=== PATIENT | female | born 1940 | race Caucasian/White ===

== ENCOUNTER 2019-05-25 20:16 | Emergency (ER) | payer OTHER, MEDICARE ==
[2019-05-25 21:21] LABS: Urine Blood 1+ (NEG); Urine Glucose NEGATIVE (NEG); Urine Protein NEGATIVE (NEG); Urine Specific Gravity <1.005 (1.005-1.030)
[2019-05-25 21:34] LABS: Urine Bacteria <20 /HPF (<20); Urine Culture Reflex Order NOT NEEDED; Urine RBC <5 /HPF (NONE SEEN)
[2019-05-25 22:00] LABS: Absolute Lymphocytes (CBC) 3.1 K/uL (0.7-4.9); Basophils % 1.3 % (0-1.3); Hematocrit 39.5 % (36.0-45.0); Lymphocytes % 30.1 % (15.3-44.8); MPV 7.8 fL (7.6-11.3)
[2019-05-25 22:11] LABS: ALT/SGPT 24 U/L (12-78); AST/SGOT 17 U/L (15-37); Albumin 3.9 g/dL (3.4-5.0); Alkaline Phosphatase 80 U/L (45-117); BUN Blood Urea Nitrogen 9 mg/dL (7-18); Bicarbonate 31 mmol/L (21-32); Bilirubin Direct < 0.1 mg/dL (0-0.2); Bilirubin Total 0.4 mg/dL (0.2-1.0); Glucose Level 97 mg/dL (74-106); Potassium 3.9 mmol/L (3.5-5.1); Protein, Total 7.8 g/dL (6.4-8.2); Sodium Level 138 mmol/L (136-145)
[2019-05-25] MEDS ORDERED: FENTANYL CITR 100 MCG/2 ML ONE (22:56)
--- NOTE | 2019-05-25 23:16 | ER ---
Nurse's Notes [facility] Name: Ángel Medina Age: 78 yrs Sex: Female : 1940 Arrival Date: 05/25/2019 Time: 20:19 Bed 18 Private MD: Diagnosis: Pain to [place] Pubic Region Presentation: 05/24 20:40 Chief complaint: Patient states: she is having suprapubic pain since Sunday night. bb Coronavirus screen: The patient has NOT traveled to [place] in the past 14 days. Proceed with normal triage procedures. Ebola Screen: No symptoms or risks identified at this time. Initial Sepsis Screen: Does the patient meet any 2 criteria? No. Patient's initial sepsis screen is negative. Does the patient have a suspected source of infection? No. Patient's initial sepsis screen is negative. Risk Assessment: Do you want to hurt yourself or someone else? Patient reports no desire to harm self or others. 20:40 Method Of Arrival: Ambulatory bb 20:40 Acuity: ELIZABETH 3 bb - Immunization history:: Adult Immunizations unknown. - Social history:: Smoking status: unknown. Assessment: 21:30 Reassessment: pt in ct scan now. mg2 21:57 Reassessment: No changes from previously documented assessment. Patient and/or family bb3 updated on plan of care and expected duration. Pain level reassessed. Patient is alert/active/playful, equal unlabored respirations, skin warm/dry/pink. General: Appears in no apparent distress. comfortable. Pain: Complains of pain in l/l and l/r abd pain. 23:07 Reassessment: No changes from previously documented assessment. Patient and/or family bb3 updated on plan of care and expected duration. Pain level reassessed. Patient is alert, oriented x 3, equal unlabored respirations, skin warm/dry/pink. Pain: Complains of pain in l/r and l/l abd pain Pain currently is 8 out of 10 on a pain scale. Quality of pain is described as burning, sharp. 23:57 Reassessment: Patient and/or family updated on plan of care and expected duration. Pain bb3 level reassessed. Patient is alert, oriented x 3, equal unlabored respirations, skin warm/dry/pink. Patient denies pain at this time. Patient states feeling better. Patient states symptoms have improved. General: Appears in no apparent distress. comfortable. Pain: Denies pain. 05/25 00:29 Reassessment: Patient appears in no apparent distress at this time. Patient and/or bb3 family updated on plan of care and expected duration. Pain level reassessed. Patient is alert, oriented x 3, equal unlabored respirations, skin warm/dry/pink. Patient denies pain at this time. Patient states feeling better. Patient states symptoms have improved. Vital Signs: 05/24 20:40 BP 184 / 88; Pulse 89; Resp 16 S; Temp 98(O); Pulse Ox 96% on R/A; Pain 7/10; bb 20:49 Weight 72.57 kg; Height 5 ft. 0 in. (152.40 cm); mg2 21:54 BP 126 / 65; Pulse 71; Resp 19; Pulse Ox 96% ; Pain 8/10; bb3 23:06 BP 144 / 69; Pulse 84; Resp 18; Pulse Ox 95% ; Pain 8/10; bb3 05/25 00:28 BP 147 / 65; Pulse 79; Resp 18; Pulse Ox 97% ; Pain 0/10; bb3 05/24 20:49 Body Mass Index 31.25 (72.57 kg, 152.40 cm) mg2 ED Course: 05/24 20:19 Patient arrived in ED. cl3 20:24 Tonny Aguila PA is PHCP. jr8 20:24 Darryn Parker MD is Attending Physician. jr8 20:40 Arm band placed on Patient placed in an exam room, on a stretcher, on pulse oximetry. bb Family accompanied patient. 20:41 Triage completed. bb 21:50 vaginal exam. Inserted saline lock: 20 gauge in right antecubital area, using aseptic mg2 technique. Blood collected. 21:54 CT Stone Protocol In Process Unspecified. EDMS 23:15 Raymon Snyder MD is Referral Physician. jr8 Administered Medications: 23:05 Drug: fentaNYL (PF) 50 mcg Route: IVP; Site: right antecubital; bb3 05/25 00:10 Follow up: Response: No adverse reaction; Marked relief of symptoms; Pain is decreased; bb3 pain 0/0 Intake: Outcome: 05/24 23:16 Discharge ordered by . jr8 05/25 00:29 Patient left the ED. bb3 Signatures: Dispatcher [employer] Albina Ho RN RN bb Tonny Aguila PA PA jr8 Coy Sandoval RN RN mg2 Lewis, Charde cl3 Dolly Jones bb3
--- NOTE | 2019-05-25 23:16 | EDPHYS ---
Physician Documentation [facility] Name: Ángel Medina Age: 78 yrs Sex: Female : 1940 Arrival Date: 05/25/2019 Time: 20:19 Bed 18 Private MD: ED Physician Darryn Parker HPI: 05/24 21:47 This 78 yrs old Female presents to ER via Ambulatory with complaints of pubic jr8 pain. 21:47 The patient presents with abdominal pain pubic region. Onset: The symptoms/episode jr8 began/occurred acutely, yesterday. The symptoms do not radiate. Associated signs and symptoms: none. The symptoms are described as dull, stabbing. Modifying factors: The symptoms are alleviated by nothing, the symptoms are aggravated by movement. Severity of pain: At its worst the pain was moderate in the emergency department the pain is unchanged. The patient has not experienced similar symptoms in the past. The patient has not recently seen a physician. Denies urinary symptoms, fevers, n/v/d. - Immunization history:: Adult Immunizations unknown. - Social history:: Smoking status: unknown. ROS: 21:47 Eyes: Negative for injury, pain, redness, and discharge, ENT: Negative for injury, jr8 pain, and discharge, Neck: Negative for injury, pain, and swelling, Cardiovascular: Negative for chest pain, palpitations, and edema, Respiratory: Negative for shortness of breath, cough, wheezing, and pleuritic chest pain, Back: Negative for injury and pain, MS/Extremity: Negative for injury and deformity, Skin: Negative for injury, rash, and discoloration, Neuro: Negative for headache, weakness, numbness, tingling, and seizure. 21:47 Abdomen/GI: Positive for abdominal pain, Negative for nausea, vomiting, and diarrhea, constipation, abdominal cramps, abdominal distension. Exam: 21:47 Eyes: Pupils equal round and reactive to light, extra-ocular motions intact. Lids and jr8 lashes normal. Conjunctiva and sclera are non-icteric and not injected. Cornea within normal limits. Periorbital areas with no swelling, redness, or edema. ENT: Nares patent. No nasal discharge, no septal abnormalities noted. Tympanic membranes are normal and external auditory canals are clear. Oropharynx with no redness, swelling, or masses, exudates, or evidence of obstruction, uvula midline. Mucous membranes moist. Neck: Trachea midline, no thyromegaly or masses palpated, and no cervical lymphadenopathy. Supple, full range of motion without nuchal rigidity, or vertebral point tenderness. No Meningismus. Cardiovascular: Regular rate and rhythm with a normal S1 and S2. No gallops, murmurs, or rubs. Normal PMI, no JVD. No pulse deficits. Respiratory: Lungs have equal breath sounds bilaterally, clear to auscultation and percussion. No rales, rhonchi or wheezes noted. No increased work of breathing, no retractions or nasal flaring. Back: No spinal tenderness. No costovertebral tenderness. Full range of motion. Skin: Warm, dry with normal turgor. Normal color with no rashes, no lesions, and no evidence of cellulitis. MS/ Extremity: Pulses equal, no cyanosis. Neurovascular intact. Full, normal range of motion. Neuro: Awake and alert, GCS 15, oriented to person, place, time, and situation. Cranial nerves II-XII grossly intact. Motor strength 5/5 in all extremities. Sensory grossly intact. Cerebellar exam normal. Normal gait. 21:47 Abdomen/GI: Inspection: abdomen appears normal, Bowel sounds: active, all quadrants, Palpation: soft, in all quadrants, mild abdominal tenderness, in the suprapubic area and lower mons pubic region, mass, is not appreciated, rebound tenderness, is not appreciated, voluntary guarding, is not appreciated, involuntary guarding, is not appreciated, no appreciated organomegaly, Indicators: McBurney's point is not tender, Avelar's sign is negative, Rovsing's sign is negative, Liver: tenderness, is not appreciated. 21:47 : CVA tenderness, is absent, Pelvic Exam: External exam: is normal, no appreciated Bartholin's cyst, no erythema, not excoriated, no evidence of foreign body, no lesions, no ulcerations, no warts seen, discharge, is not appreciated, the nurse was present for the exam. Vital Signs: 20:40 BP 184 / 88; Pulse 89; Resp 16 S; Temp 98(O); Pulse Ox 96% on R/A; Pain 7/10; bb 20:49 Weight 72.57 kg; Height 5 ft. 0 in. (152.40 cm); mg2 21:54 BP 126 / 65; Pulse 71; Resp 19; Pulse Ox 96% ; Pain 8/10; bb3 23:06 BP 144 / 69; Pulse 84; Resp 18; Pulse Ox 95% ; Pain 8/10; bb3 05/25 00:28 BP 147 / 65; Pulse 79; Resp 18; Pulse Ox 97% ; Pain 0/10; bb3 05/24 20:49 Body Mass Index 31.25 (72.57 kg, 152.40 cm) mg2 MDM: 05/24 20:28 Patient medically screened. jr8 23:13 Data reviewed: vital signs, nurses notes, lab test result(s), radiologic studies, CT jr8 scan. Data interpreted: Pulse oximetry: on room air is 95 %. Interpretation: normal. Counseling: I had a detailed discussion with the patient and/or guardian regarding: the historical points, exam findings, and any diagnostic results supporting the discharge/admit diagnosis, lab results, radiology results, the need for outpatient follow up, a family practitioner, to return to the emergency department if symptoms worsen or persist or if there are any questions or concerns that arise at home. Response to treatment: the patient's symptoms have markedly improved after treatment. ED course: Discussed with patient that there is no acute imaging evidence or lab abnormalities at this time to explain the pubic pain she has been feeling. Physical exam did not reveal any erythema, bruising, or hematoma to that region also. Could be light bruise or pull of ligament or muscle from lifting heavy boxes the other day. Recommend NSAID for next couple of days and to f/u with Dr. Snyder tomorrow. Patient good with this . 05/25 00:19 ED course: [facility] reviewed without acute contraindication for prescribing the jr8 Tramadol . 05/24 20:24 Order name: Urine Microscopic Only; Complete Time: 21:59 jr8 05/24 21:15 Order name: Basic Metabolic Panel; Complete Time: 22:17 jr8 05/24 21:15 Order name: CBC with Diff; Complete Time: 22:04 jr8 05/24 21:15 Order name: Creatinine for Radiology; Complete Time: 22:11 jr8 05/24 21:15 Order name: Hepatic Function; Complete Time: 22:17 jr8 05/24 21:18 Order name: Urine Dipstick--Ancillary (enter results); Complete Time: 21:26 ar5 05/24 20:24 Order name: Urine Dipstick-Ancillary (obtain specimen); Complete Time: 20:49 jr8 05/24 21:15 Order name: IV Saline Lock; Complete Time: 21:50 jr8 05/24 21:15 Order name: Labs collected and sent; Complete Time: 21:50 jr8 05/24 21:15 Order name: CT Stone Protocol jr8 Administered Medications: 05/24 23:05 Drug: fentaNYL (PF) 50 mcg Route: IVP; Site: right antecubital; bb3 05/25 00:10 Follow up: Response: No adverse reaction; Marked relief of symptoms; Pain is decreased; bb3 pain 0/0 Disposition: 01:05 Co-signature as Attending Physician, Darryn Parker MD. pkchina Disposition: 05/25/19 23:16 Discharged to Home. Impression: Pain to [place] Pubic Region. - Condition is Stable. - Discharge Instructions: Muscle Pain, Adult, Pelvic Pain, Female. - Prescriptions for Mobic 7.5 mg Oral Tablet - take 1 tablet by ORAL route once daily As needed take with food; 7 tablet. Tramadol 50 mg Oral Tablet - take 2 tablet by ORAL route every 8 hours As needed as needed; 20 tablet. - Medication Reconciliation Form, Thank You Letter, Antibiotic Education, Prescription Opioid Use form. - Follow up: Raymon Snyder MD; When: Tomorrow; Reason: Recheck today's complaints, Continuance of care, Re-evaluation by your physician. - Problem is new. - Symptoms have improved. Signatures: Dispatcher [employer] EDMS Darryn Parker MD MD pkl Albina Álvarez RN RN bb Tonny Aguila PA PA jr8 Coy Sandoval RN RN mg2 Borel, Brandy bb3 Corrections: (The following items were deleted from the chart) 05/24 23:16 23:16 05/25/2019 23:16 Discharged to Home. Impression: [place] Pubis Pain . Condition is jr8 Stable. Forms are Medication Reconciliation Form, Thank You Letter, Antibiotic Education, Prescription Opioid Use. Follow up: Raymon Snyder; When: Tomorrow; Reason: Recheck today's complaints, Continuance of care, Re-evaluation by your physician. Problem is new. Symptoms have improved. jr8 05/25 00:29 05/24 23:16 05/25/2019 23:16 Discharged to Home. Impression: Pain to [place] Pubic Region. bb3 Condition is Stable. Forms are Medication Reconciliation Form, Thank You Letter, Antibiotic Education, Prescription Opioid Use. Follow up: Raymon Snyder; When: Tomorrow; Reason: Recheck today's complaints, Continuance of care, Re-evaluation by your physician. Problem is new. Symptoms have improved. jr8
[2019-05-26 02:52] VITALS: BP 147/65; TEMP 98; O2SAT 97
--- NOTE | 2019-05-26 13:06 | RAD REPORT ---
EXAM DESCRIPTION: CT Abdomen and Pelvis Without Intravenous Contrast CLINICAL HISTORY: The patient is 78 years old and is Female; ABD PAIN TECHNIQUE: Axial computed tomography images of the abdomen and pelvis without intravenous contrast. Sagittal and coronal reformatted images were created and reviewed. This CT exam was performed usi ng one or more of the following dose reduction techniques: automated exposure control, adjustment o f the mA and/or kV according to patient size, and/or use of iterative reconstruction technique. COMPARISON: No relevant prior studies available. FINDINGS: LUNG BASES: Unremarkable. No mass. No consolidation. ABDOMEN: LIVER: Homogeneous without focal mass. GALLBLADDER AND BILE DUCTS: Calcified gallstones are present within the gallbladder. There is no ductal dilatation. PANCREAS: The pancreas is mildly atrophic. No ductal dilation. SPLEEN: Unremarkable. ADRENALS: Unremarkable. No mass. KIDNEYS AND URETERS: No obstructing stones. No hydronephrosis. No perinephric fluid. STOMACH AND BOWEL: The stomach is well distended with food contents. The small bowel is normal i n caliber. Stool is present throughout colon. There is no mucosal thickening or evidence of bowel obs truction. PELVIS: APPENDIX: No findings to suggest acute appendicitis. BLADDER: Unremarkable. No stones. REPRODUCTIVE: Unremarkable as visualized. ABDOMEN and PELVIS: INTRAPERITONEAL SPACE: Unremarkable. No free air. No significant fluid collection. BONES/JOINTS: Mild multilevel degenerative changes spine is present. Anterolisthesis of L4 on L5 secondary to degenerative facet arthropathy is present. SOFT TISSUES: The soft tissues are normal. VASCULATURE: Atherosclerosis of the vasculature is present. The vessels are normal in caliber. No abdominal aortic aneurysm. LYMPH NODES: Unremarkable. No enlarged lymph nodes. IMPRESSION: No acute findings on this noncontrasted CT of the abdomen and pelvis to explain the esther ent's symptoms. Electronically signed by: Lashon Armas MD 05/25/2019 10:00 PM PARTS ANALYST Due to temporary technical issues with the PACS/Fluency reporting system, reports are being signed by the in house radiologist as a courtesy to ensure prompt reporting. The interpreting radiologist is jillian carroll responsible for the content of the report.
== END 2019-05-26 00:29 | disposition home or self-care (01) ==
LOC: ER 20:16
DX: R10.2 Pelvic and perineal pain (principal)
CPT/HCPCS: 85025; 80048; 36415; 80076; 76377; 74176; 96374; 99284; J3010; 81003; 81015

== ENCOUNTER 2023-07-09 10:57 | Emergency (ER) | payer OTHER, MEDICARE ==
--- OUTSIDE RECORDS SUMMARY | 2023-07-09 11:01 | XMS REPORT | Continuity of Care Document ---
Author Name Unknown Address [address] [place] [address] [facility] thconnect Address [address] [place] [address] Care Team Providers Care Gravel Wheeler Name Role Phone Raymon Snyder Harshal Primary Care Physician + [phone] [place] CASTILLO Attending Clinician Ok Wayne MD Attending Clinician [phone] Only, Adc Test Attending Clinician Unavailable Doctor Unassigned, [place] Attending Clinician U navailable Pob, Adc Lab Main Attending Clinician [place] Rainey Admitting Clinician Ok Wayne MD Admitting Clinician [phone] Payers Payer Name Policy Type Policy Number Effective Date Expirati on Date Source MEDICARE PART A \T\ [id number] 2006 00:00:00 [facility] MEDICARE SUPPLEMENT [id number] 2021 00:00:00 Allergies, Adverse Reactions, Alerts Allergy Name Allergy Type Status Severity Reaction(s) Onset Date Inactive Date Treating Clinician Comments Source HYDROCHL OROTHIAZ AYLEEN DRUG INGREDI Active Other-Cmnt 09-08 00:00: 00 [facility] Hydrochl orothiaz ayleen Propensi ty to adverse reaction s to drug Active Other - See comments 09-08 00:00: 00 [facility] NO KNOWN ALLERGIE S Drug Class Active [facility] Social History Social Habit Start Date Stop Date Quantity Comments Source Exposure to SARS-CoV-2 (event) 2021-09-12 00:00:00 2021-09-22 13:17:00 Not sure [facility] Tobacco use and exposure 2021-09-08 00:00:00 2021-09-08 00:00:00 Never used [facility] Sex Assigned At 1940 00:00:00 1940 00:00:00 [facility] Smoking Status Start Date Stop Date Source Unknown [facility] Medications Ordered Medication Name Filled Medication Name Start Date Stop Date Current Medication? Ordering Clinician Indication Dosage Frequency Signature (SIG) Comments Components Source EPINEPHrine 1:1,000 (1 mg/mL) (ADRENALIN) injection 09-28 18:59: 00 09-28 19:46 :56 No PRN, Starting on Sun09/28/21 at 1359, Until Sun09/28/21 at 1446, Routine, Intra-op [facility] balanced salt irrig soln comb1 (BSS PLUS) ophthalmic solution 500 mL bag 09-28 18:58: 00 09-28 19:46 :56 No PRN, Starting on Sun09/28/21 at 1358, Until Sun09/28/21 at 1446, Routine, Intra-op [facility] water for irrigation irrigation solution 09-28 18:45: 00 09-28 19:46 :56 No PRN, Starting on Sun09/28/21 at 1345, Until Sun09/28/21 at 1446, Routine, Intra-op [facility] Hyaluronida se, Human Recomb. (HYLENEX) injection 09-28 18:45: 00 09-28 19:46 :56 No PRN, Starting on Sun09/28/21 at 1345, Until Sun09/28/21 at 1446, Routine, Intra-op [facility] eye block syringe 11 mL 09-28 18:44: 00 09-28 19:46 :56 No PRN, Starting on Sun09/28/21 at 1344, Until Sun09/28/21 at 1446, Intra-op [facility] sodium chloride (NS) injection 09-28 18:12: 00 09-28 19:46 :56 No PRN, Starting on Sun09/28/21 at 1312, Until Sun09/28/21 at 1446, Routine, Intra-op [facility] dexamethaso ne (DECADRON PHOSPHATE) injection 09-28 18:12: 00 09-28 19:46 :56 No PRN, Starting on Sun09/28/21 at 1312, Until Sun09/28/21 at 1446, Routine, Intra-op [facility] ceFAZolin (ANCEF) injection 09-28 18:12: 00 09-28 19:46 :56 No PRN, Starting on Sun09/28/21 at 1312, Until Sun09/28/21 at 1446, SABRINA, Intra-op [facility] carbachoL (MIOSTAT) 0.01 % intraocular injection 09-28 18:10: 00 09-28 19:46 :56 No PRN, Starting on Sun09/28/21 at 1310, Until Sun09/28/21 at 1446, Routine, Intra-op [facility] neomycin-po lymyxin-dex amethasone (MAXITROL) 3.5 mg/g-10,000 unit/g-0.1 % ophthalmic ointment 09-28 18:08: 00 09-28 19:46 :56 No PRN, Starting on Sun09/28/21 at 1308, Until Sun09/28/21 at 1446, Routine, Intra-op [facility] chondroitin sulf-sod hyaluronate (DUOVISC VISCO ELASTIC) intraocular injection 09-28 18:06: 00 09-28 19:46 :56 No PRN, Starting on Sun09/28/21 at 1306, Until Sun09/28/21 at 1446, Routine, Intra-op [facility] cyclopent 1%-tropic 1%-phenyl 2.5%-ketor 0.5% (MYDRIATIC #5) ophthalmic solution syringe 0.5 mL 09-28 17:30: 00 09-28 17:35 :00 No .5mL 0.5 mL, Left Eye, ONCE, 1 dose, On Sun09/28/21 at 1230, Routine, DSU Pre-op [facility] lactated ringers IV infusion 1,000 mL 09-28 17:30: 00 09-28 17:35 :00 No 1000mL at 42 mL/hr, 1,000 mL, IV Infusion, ONCE, 1 dose, On Sun09/28/21 at 1230, Routine, DSU Pre-op [facility] aspirin 81 mg chewable tablet 09-28 14:47: 51 Yes 81mg Take 81 mg by mouth daily. [facility] aspirin 81 mg chewable tablet 09-22 13:14: 13 Yes 81mg Take 81 mg by mouth daily. [facility] neomycin-po lymyxin-dex amethasone (MAXITROL) 3.5 mg/g-10,000 unit/g-0.1 % ophthalmic ointment 09-14 19:38: 00 09-14 19:53 :44 No PRN, Starting on Sun09/14/21 at 1438, Until Sun09/14/21 at 1453, Routine, Intra-op [facility] dexamethaso ne (DECADRON PHOSPHATE) injection 09-14 19:37: 00 09-14 19:53 :44 No PRN, Starting on Sun09/14/21 at 1437, Until Sun09/14/21 at 1453, Routine, Intra-op [facility] ceFAZolin (ANCEF) injection 09-14 19:37: 00 09-14 19:53 :44 No PRN, Starting on Sun09/14/21 at 1437, Until Sun09/14/21 at 1453, SABRINA, Intra-op [facility] carbachoL (MIOSTAT) 0.01 % intraocular injection 09-14 19:37: 00 09-14 19:53 :44 No PRN, Starting on Sun09/14/21 at 1437, Until Sun09/14/21 at 1453, Routine, Intra-op [facility] chondroitin sulf-sod hyaluronate (DUOVISC VISCO ELASTIC) intraocular injection 09-14 19:33: 00 09-14 19:53 :44 No PRN, Starting on Sun09/14/21 at 1433, Until Sun09/14/21 at 1453, Routine, Intra-op [facility] sodium chloride (NS) injection 09-14 19:33: 00 09-14 19:53 :44 No PRN, Starting on Sun09/14/21 at 1433, Until Sun09/14/21 at 1453, Routine, Intra-op [facility] EPINEPHrine 1:1,000 (1 mg/mL) (ADRENALIN) injection 09-14 19:33: 00 09-14 19:53 :44 No PRN, Starting on Sun09/14/21 at 1433, Until Sun09/14/21 at 1453, Routine, Intra-op [facility] balanced salt irrig soln comb1 (BSS PLUS) ophthalmic solution 500 mL bag 09-14 19:33: 00 09-14 19:53 :44 No PRN, Starting on Sun09/14/21 at 1433, Until Sun09/14/21 at 1453, Routine, Intra-op [facility] water for irrigation irrigation solution 09-14 19:29: 00 09-14 19:53 :44 No PRN, Starting on Sun09/14/21 at 1429, Until Sun09/14/21 at 1453, Routine, Intra-op [facility] Hyaluronida se, Human Recomb. (HYLENEX) injection 09-14 19:26: 00 09-14 19:53 :44 No PRN, Starting on Sun09/14/21 at 1426, Until Sun09/14/21 at 1453, Routine, Intra-op [facility] eye block syringe 11 mL 09-14 19:26: 00 09-14 19:53 :44 No PRN, Starting on Sun09/14/21 at 1426, Until Sun09/14/21 at 1453, Intra-op [facility] lactated ringers IV infusion 1,000 mL 09-14 18:00: 00 09-14 18:02 :00 No 1000mL at 42 mL/hr, 1,000 mL, IV Infusion, ONCE, 1 dose, On Sun09/14/21 at 1300, Routine, DSU Pre-op [facility] cyclopent 1%-tropic 1%-phenyl 2.5%-ketor 0.5% (MYDRIATIC #5) ophthalmic solution syringe 0.5 mL 09-14 18:00: 00 09-14 18:03 :00 No .5mL 0.5 mL, Right Eye, ONCE, 1 dose, On Sun09/14/21 at 1300, Routine, DSU Pre-op [facility] aspirin 81 mg chewable tablet 09-14 15:57: 20 Yes 81mg Take 81 mg by mouth daily. [facility] aspirin 81 mg chewable tablet 09-08 15:30: 52 Yes 81mg Take 81 mg by mouth daily. [facility] DECARA 625 mcg (25,000 unit) Cap 08-14 00:00: 00 Yes 1{capsu le} Take 1 capsule by mouth weekly. [facility] alendronate 70 mg tablet 08-11 00:00: 00 Yes 70mg Take 70 mg by mouth weekly. Sunday [facility] losartan 100 mg tablet 07-03 00:00: 00 Yes 100mg Take 100 mg by mouth daily. [facility] atorvastati n 20 mg tablet 06-30 00:00: 00 Yes 20mg Take 20 mg by mouth daily. [facility] EUTHYROX 50 mcg tablet 24 00:00: 00 Yes 50ug Take 50 mcg by mouth every morning. [facility] Vital Signs Vital Name Observation Time Observation Value Comments S ource Respiratory rate 2021-09-28 19:34:00 15 /min [facility] Oxygen saturation in Arterial blood by Pulse oximetry 2021-09-28 19:34:00 95 /min [facility] Heart rate 2021-09-28 19:34:00 89 /min [facility] Systolic blood pressure 2021-09-28 19:33:00 161 mm[Hg] [facility] Diastolic blood pressure 2021-09-28 19:33:00 79 mm[Hg] [facility] Body temperature 2021-09-28 19:20:00 36.67 [facility] Body height 2021-09-22 15:20:00 152.4 cm [facility] Body weight 2021-09-22 15:20:00 73.9 kg [facility] BMI 2021-09-22 15:20:00 31.82 kg/m2 [facility] Systolic blood pressure 2021-09-28 17:27:00 146 mm[Hg] [facility] Diastolic blood pressure 2021-09-28 17:27:00 77 mm[Hg] [facility] Heart rate 2021-09-28 17:27:00 88 /min [facility] Body temperature 2021-09-28 17:27:00 36.5 [facility] Respiratory rate 2021-09-28 17:27:00 18 /min [facility] Oxygen saturation in Arterial blood by Pulse oximetry 2021-09-28 17:27:00 98 /min [facility] Body height 2021-09-22 15:20:00 152.4 cm [facility] Body weight 2021-09-22 15:20:00 73.9 kg [facility] BMI 2021-09-22 15:20:00 31.82 kg/m2 [facility] Systolic blood pressure 2021-09-14 20:09:00 151 mm[Hg] [facility] Diastolic blood pressure 2021-09-14 20:09:00 73 mm[Hg] [facility] Heart rate 2021-09-14 20:09:00 87 /min [facility] Respiratory rate 2021-09-14 20:09:00 13 /min [facility] Oxygen saturation in Arterial blood by Pulse oximetry 2021-09-14 20:09:00 94 /min [place] [facility] Body temperature 2021-09-14 19:55:00 36.5 [place] [facility] Body height 2021-09-12 14:45:00 152.4 cm [facility] Body weight 2021-09-12 14:45:00 73.9 kg [facility] BMI 2021-09-12 14:45:00 31.82 kg/m2 [facility] Heart rate 2021-09-14 17:47:00 88 /min [facility] Body temperature 2021-09-14 17:47:00 36.44 [place] [facility] Respiratory rate 2021-09-14 17:47:00 20 /min [facility] Body weight 2021-09-12 14:45:00 73.9 kg [facility] BMI 2021-09-12 14:45:00 31.82 kg/m2 [facility] Body height 2021-09-12 14:45:00 152.4 cm [facility] Procedures Procedure Date / Time Performed Performing Clinician Source PHACOEMULSIFICATION OF CATARACT WITH INTRAOCULAR LENS IMPLANT 2021-09-28 18:37:00 Ok Castillo [facility] CONSENT/REFUSAL FOR DIAGNOSI S AND TREATMENT 2021-09-27 14:46:13 Doctor Unassigned, [place] [facility] CONSENT/REFUSAL FOR DIAGNOSI S AND TREATMENT 2021-09-27 14:46:13 Doctor Unassigned, [place] [facility] ASSIGNMENT OF BENEFITS 2021-09-27 14:45:45 Doctor Unassigned, [place] [facility] ASSIGNMENT OF BENEFITS 2021-09-27 14:45:45 Doctor Unassigned, [place] [facility] PHACOEMULSIFICATION OF CATARACT WITH INTRAOCULAR LENS IMPLANT 2021-09-14 19:14:00 Ok Castillo [facility] ASSIGNMENT OF BENEFITS 2021-09-12 15:14:43 Doctor Unassigned, [place] [facility] Encounters Start Date/Time End Date/Time Encounter Type Admission Type Attending Clinicians Care Facility Care Department Encounter ID Source 2021-09-28 12:20:00 2021-09-28 14:41:00 Outpatient R [place] CASTILLO [facility] OPH [id number] [facility] 2021-09-28 12:20:00 2021-09-28 14:41:00 Hospital Encounter Ok Castillo [facility] [id number] [facility] 2021-09-28 12:19:00 2021-09-28 12:51:00 Surgery Ok Castillo [facility] [id number] [id number] [facility] 2021-09-27 15:30:00 2021-09-27 15:45:00 Laboratory Only Only, Adc Test Ok Castillo [facility] [id number] [id number] [id number] [facility] 2021-09-27 15:30:00 2021-09-27 15:30:00 Outpatient [place] CASTILLO [facility] [id number] [facility] 2021-09-14 12:38:00 2021-09-14 15:17:00 Outpatient R [place] CASTILLO [facility] OPH [id number] [facility] 2021-09-14 12:38:00 2021-09-14 15:17:00 Hospital Encounter Ok Castillo [facility] [id number] [id number] [id number] [facility] 2021-09-14 12:55:00 2021-09-14 13:27:00 Surgery ZeferinoOk [facility] [id number] [id number] [id number] [id number] [facility] 2021-09-12 15:00:00 2021-09-12 15:15:00 Laboratory Only Only, Adc Test Ok Castillo [facility] ..840.114 [id number] [id number] [id number] [facility] 2021-09-12 15:00:00 2021-09-12 15:00:00 Outpatient R [place] CASTILLO [facility] [id number] [facility] 2021-09-12 00:00:00 2021-09-12 00:00:00 Orders Only Doctor Unassigned, [place] [facility] 1..840.114 [id number] [id number] [id number] [facility] 2021-08-29 16:30:00 2021-08-29 16:45:00 Virology Teacher Visit Pob, Adc Lab Main Ok Castillo [facility] 1.840.114 [id number] [id number] [id number] [facility] 2021-08-29 16:30:00 2021-08-29 16:30:00 Outpatient R [place] CASTILLO [facility] [id number] [facility]
[2023-07-09] MEDS ORDERED: MAGNESIUM CITRATE 300 ML BOT ONE (11:57)
[2023-07-09] MEDS ORDERED: NA CHLORIDE 0.9% 1,000 ML ONE (11:57)
[2023-07-09 12:19] LABS: Absolute Basophils 0.2 K/uL (0-0.5); Absolute Eosinophils 0.1 K/uL (0-0.5); Absolute Lymphocytes (CBC) 1.9 K/uL (0.7-4.9); Absolute Monocytes 1.3 K/uL (0.1-1.3); Absolute Neutrophil 11.6 K/uL (1.8-8.0); Basophils % 1.1 % (0-1.3); Eosinophils % 0.7 % (0-4.4); Hematocrit 37.2 % (36.0-45.0); Hemoglobin 12.2 g/dL (12.0-15.0); Lymphocytes % 12.8 % (15.3-44.8); MCH 28.9 pg (27.0-35.0); MCHC 32.8 g/dL (32.0-36.0); MPV 6.9 fL (7.6-11.3); Monocytes % 8.9 % (3.3-12.3); Neutrophils % 76.5 % (41.7-73.7); Platelets 275 thou/uL (152-406); RBC Red Blood Cell Count 4.22 M/uL (3.86-4.86); Red Cell Distribution Width 14.4 % (12.1-15.2)
[2023-07-09 12:32] LABS: Albumin 3.9 g/dL (3.4-5.0); Albumin/Globulin Ratio 0.9 (1.1-1.8); Anion Gap 10.1 mEq/L (5.0-15.0); Bilirubin Total 0.4 mg/dL (0.2-1.0); Globulin 4.2 g/dL (2.3-3.5); Potassium 4.1 mEq/L (3.5-5.1); Protein, Total 8.1 g/dL (6.4-8.2)
--- NOTE | 2023-07-09 13:19 | RAD REPORT ---
EXAM DESCRIPTION: CT - Abdomen Pelvis W Contrast - 07/09/2023 12:49 pm CLINICAL HISTORY: ABD PAIN COMPARISON: Abdomen Pelvis Wo Contrast dated 05/05/2023 TECHNIQUE: Thin cut axial CT imaging of the abdomen and pelvis was performed following intravenous a dministration of 100 mL Isovue 300. Multiplanar reformats were generated and reviewed. All CT scans are performed using dose optimization technique as appropriate and may include automated exposure control or mA/KV adjustment according to patient size. FINDINGS: No suspicious findings in the lung bases. The liver, spleen, adrenal glands, and pancreas show no suspicious findings. Small splenules again se en. Gallbladder shows 2 large gallstones. Adjacent inflammatory changes. No intra or extrahepatic nette iary ductal dilation. Cortical atrophy of the left kidney is seen with no hydronephrosis or suspicious renal mass. No radio paque calculi. No dilated bowel loops or bowel wall thickening. No free air, free fluid or inflammatory stranding. N o hernia, mass or bulky lymphadenopathy. Large stool burden in the rectum. The urinary bladder is wit hout significant finding. No suspicious bony findings. IMPRESSION: No acute intra-abdominal process. Cholelithiasis. Large stool burden in the rectum.
[2023-07-09] MEDS ORDERED: FLEET ENEMA ADULT PR ONE (13:39)
--- NOTE | 2023-07-09 14:47 | EDPHYS ---
Physician Documentation [facility] Name: Ángel Medina Age: 82 yrs Sex: Female : 1940 Arrival Date: 07/09/2023 Time: 10:57 Bed 7 Private MD: Margoth Acevedo C ED Physician Bernabe Mcmillan HPI: 07/08 11:10 This 82 yrs old Female presents to ER via Ambulatory with complaints of Constipation. sb4 11:10 The patient presents with abdominal pain in the lower abdomen. Onset: The sb4 symptoms/episode began/occurred gradually. The symptoms do not radiate. Associated signs and symptoms: Pertinent positives: constipation. The patient has not experienced similar symptoms in the past. The patient has not recently seen a physician. patient reports no BM for 1 week. has pain in lower abdomen. does not think she is passing gas. Historical: - Allergies: 13:44 No Known Allergies; ld1 - PMHx: 11:02 Hypothyroidism; Hypertensive disorder; Hypercholesterolemia; ll1 - PSHx: 11:02 Appendectomy; ll1 - Immunization history:: Adult Immunizations up to date. - Infectious Disease History:: Denies. - Social history:: Smoking status: Patient denies any tobacco usage or history of. ROS: 11:10 Constitutional: Negative for fever, chills, and weight loss, sb4 11:10 Abdomen/GI: Positive for abdominal pain, constipation, 11:10 All other systems are negative, Exam: 11:10 Head/Face: Normocephalic, atraumatic. Eyes: Extra-ocular motions intact. Periorbital sb4 areas with no swelling, redness, or edema. ENT: Mucous membranes moist. Cardiovascular: Regular rate and rhythm with a normal S1 and S2. Respiratory: Lungs have equal breath sounds bilaterally, clear to auscultation and percussion. No rales, rhonchi or wheezes noted. No increased work of breathing, no retractions or nasal flaring. Skin: Warm, dry with normal turgor. Normal color with no rashes, no lesions, and no evidence of cellulitis. MS/ Extremity: Pulses equal, no cyanosis. Neurovascular intact. Full, normal range of motion. 11:10 Constitutional: The patient appears alert, awake, uncomfortable, 11:10 Abdomen/GI: Inspection: abdomen appears normal, Bowel sounds: diminished, in the left lower quadrant, Palpation: soft, mild abdominal tenderness, Vital Signs: 11:03 BP 155 / 76; Pulse 83; Resp 17; Temp 98.6; Pulse Ox 96% on R/A; Weight 76.2 kg; Height ll1 5 ft. 0 in. ; Pain 10/10; 13:44 BP 146 / 79; Pulse 79; Resp 18; Pulse Ox 98% on R/A; ld1 14:49 BP 140 / 81; Pulse 82; Resp 18; Pulse Ox 99% on R/A; rs5 11:03 Body Mass Index 32.81 (76.20 kg, 152.4 cm) ll1 11:03 Pain Scale: Adult ll1 MDM: 11:08 Patient medically screened. sb4 11:10 Differential diagnosis: constipation, bowel obstruction, fecal impaction. sb4 14:46 Data reviewed: vital signs, nurses notes, lab test result(s), radiologic studies, and sb4 as a result, I will discharge patient. Counseling: I had a detailed discussion with the patient and/or guardian regarding the historical points, exam findings, and any diagnostic results supporting the discharge/admit diagnosis, lab results, radiology results, to return to the emergency department if symptoms worsen or persist or if there are any questions or concerns that arise at home. 07/08 11:10 Order name: CBC with Diff; Complete Time: 12:21 sb4 07/08 11:10 Order name: CMP; Complete Time: 12:33 sb4 07/08 11:10 Order name: Lipase; Complete Time: 12:33 sb4 07/08 11:10 Order name: CT Abd/Pelvis - IV Contrast Only; Complete Time: 13:20 sb4 07/08 11:10 Order name: IV Saline Lock; Complete Time: 12:13 sb4 07/08 11:10 Order name: Labs collected and sent; Complete Time: 12:13 sb4 Administered Medications: 12:13 Drug: NS 0.9% IV 1000 ml IV at 1 bolus Per protocol; 1000 mL bolus Route: IV; Rate: 1 rs5 bolus; Site: left antecubital; 12:13 Drug: Magnesium Citrate PO Liquid 300 ml PO once Route: PO; rs5 13:52 Drug: Fleet Enema SD 133 ml SD once; may repeat once Route: SD; ld1 Disposition Summary: 07/09/23 14:46 Discharge Ordered Notes: Location: Home sb4 Problem: new sb4 Symptoms: have improved sb4 Condition: Stable sb4 Diagnosis - Constipation sb4 Followup: sb4 - With: Margoth Acevedo MD - When: As needed - Reason: Recheck today's complaints, Re-evaluation by your physician Discharge Instructions: - Discharge Summary Sheet sb4 - Constipation, Adult, [id number] sb4 Forms: - Thank You Letter sb4 - Patient Portal Instructions sb4 - Leadership Thank You Letter sb4 Prescriptions: - Colace 100 mg Oral Tablet - take 1 tablet ORAL route every 12 hours; 14 tablet; Refills: 0, Product sb4 Selection Permitted Addendum: 07/10/2023 16:06 I was immediately available for consultation during this patient's visit. I did not e c2 personally see the patient or discuss the patient with the [place]. . Signatures: Dispatcher [employer] Jhonathan Ozuna RN RN ll1 Mi Hernnadez RN RN ld1 Jessi Soto PA-C PA-C sb4 Steffen Juarez RN RN rs5 Bernabe Mcmillan MD MD ec2
--- NOTE | 2023-07-09 14:47 | ER ---
Nurse's Notes [facility] Name: Ángel Medina Age: 82 yrs Sex: Female : 1940 Arrival Date: 07/09/2023 Time: 10:57 Bed 7 Private MD: Margoth Acevedo C Diagnosis: Constipation Presentation: 07/08 11:03 Chief complaint: Patient states: Abdominal pain for 2 days. Constipation for 6 days. No ll1 known fever. Coronavirus screen: Client denies travel out of the [place] in the last 14 days. At this time, the client does not indicate any symptoms associated with coronavirus-19. Ebola Screen: Patient denies travel to an Ebola-affected area in the 21 days before illness onset. Initial Sepsis Screen: Does the patient meet any 2 criteria? No. Patient's initial sepsis screen is negative. Does the patient have a suspected source of infection? No. Patient's initial sepsis screen is negative. Risk Assessment: Do you want to hurt yourself or someone else? Patient reports no desire to harm self or others. Onset of symptoms was July 03, 2023. 11:03 Method Of Arrival: Ambulatory ll1 11:03 Acuity: ELIZABETH 3 ll1 Triage Assessment: 11:06 General: Appears uncomfortable, Behavior is calm, cooperative, appropriate for age. ll1 Pain: Complains of pain in abdomen Pain currently is 8 out of 10 on a pain scale. GI: Reports lower abdominal pain, upper abdominal pain, bloating, constipation. Historical: - Allergies: 13:44 No Known Allergies; ld1 - PMHx: 11:02 Hypothyroidism; Hypertensive disorder; Hypercholesterolemia; ll1 - PSHx: 11:02 Appendectomy; ll1 - Immunization history:: Adult Immunizations up to date. - Infectious Disease History:: Denies. - Social history:: Smoking status: Patient denies any tobacco usage or history of. Screenin:39 [facility] ED Fall Risk Assessment (Adult) History of falling in the last 3 months, ld1 including since admission No falls in past 3 months (0 pts). Abuse screen: Denies threats or abuse. Denies injuries from another. Nutritional screening: No deficits noted. Tuberculosis screening: No symptoms or risk factors identified. Assessment: 12:39 General: Appears in no apparent distress. comfortable, Behavior is calm, cooperative, ld1 appropriate for age. Pain: Denies pain. Neuro: Level of Consciousness is awake, alert, obeys commands, Oriented to person, place, time, situation. Cardiovascular: Capillary refill < 3 seconds Patient's skin is warm and dry. Respiratory: Airway is patent Respiratory effort is even, unlabored. GI: Abdomen is flat, non-distended, Bowel sounds present X 4 quads. Abd is soft Abd is non tender. : No signs and/or symptoms were reported regarding the genitourinary system. EENT: No signs and/or symptoms were reported regarding the EENT system. Derm: No signs and/or symptoms reported regarding the dermatologic system. Musculoskeletal: No signs and/or symptoms reported regarding the musculoskeletal system. 13:44 Reassessment: Patient appears in no apparent distress at this time. No changes from ld1 previously documented assessment. Patient and/or family updated on plan of care and expected duration. Pain level reassessed. Patient is alert, oriented x 3, equal unlabored respirations, skin warm/dry/pink. 14:30 Reassessment: Pt reports bowel movement. Notified ERP. ld1 Vital Signs: 11:03 BP 155 / 76; Pulse 83; Resp 17; Temp 98.6; Pulse Ox 96% on R/A; Weight 76.2 kg; Height ll1 5 ft. 0 in. ; Pain 10/10; 13:44 BP 146 / 79; Pulse 79; Resp 18; Pulse Ox 98% on R/A; ld1 14:49 BP 140 / 81; Pulse 82; Resp 18; Pulse Ox 99% on R/A; rs5 11:03 Body Mass Index 32.81 (76.20 kg, 152.4 cm) ll1 11:03 Pain Scale: Adult ll1 ED Course: 11:00 Patient arrived in ED. mr 11:00 Margoth Acevedo MD is Private Physician. mr 11:00 [facility] ec2 11:02 Bernabe Mcmillan MD is Attending Physician. sb4 11:03 Arm band placed on. ll1 11:04 Triage completed. ll1 11:49 Steffen Juarez, YO is Primary Nurse. rs5 11:49 Patient placed in an exam room, on a stretcher. ld1 12:39 Patient has correct armband on for positive identification. Placed in gown. Bed in low ld1 position. Call light in reach. Side rails up X2. front desk monitor on. Pulse ox on. NIBP on. Door closed. Noise minimized. Warm blanket given. 12:39 No provider procedures requiring assistance completed. ld1 12:49 CT Abd/Pelvis - IV Contrast Only In Process Unspecified. EDMS 14:46 Margoth Acevedo MD is Referral Physician. sb4 15:00 IV discontinued, intact, bleeding controlled, No redness/swelling at site. ld1 Administered Medications: 12:13 Drug: NS 0.9% IV 1000 ml IV at 1 bolus Per protocol; 1000 mL bolus Route: IV; Rate: 1 rs5 bolus; Site: left antecubital; 12:13 Drug: Magnesium Citrate PO Liquid 300 ml PO once Route: PO; rs5 13:52 Drug: Fleet Enema MI 133 ml MI once; may repeat once Route: MI; ld1 Medication: 15:01 VIS not applicable for this client. ld1 Outcome: 14:46 Discharge ordered by MD. sb4 15:00 Discharged to home ambulatory, ld1 15:00 Condition: stable 15:00 Discharge instructions given to patient, Instructed on discharge instructions, follow up and referral plans. Demonstrated understanding of instructions, follow-up care, medications, Prescriptions given X 1, 15:01 Patient left the ED. ld1 Signatures: Dispatcher [employer] EDSD Selena Levine, Reg Reg mr Jhonathan Lai, RN RN ll1 Mi Hernandez RN RN ld1 Jessi Soto PA-C PARamonita sb4 Steffen Juarez RN RN rs5 Bernabe Mcmillan MD MD ec2 Corrections: (The following items were deleted from the chart) 11:05 11:03 Chief complaint: Patient states: Abdominal pain with constipation for 6 days. No ll1 known fever ll1 17:55 17:54 BP 140 / 81; Pulse 82bpm; Resp 18bpm; Pulse Ox 99% RA; rs5 rs5
[2023-07-09 16:45] VITALS: BP 146/79; TEMP 98.6; O2SAT 98
== END 2023-07-09 15:01 | disposition home or self-care (01) ==
LOC: ER 10:57
DX: K59.00 Constipation, unspecified (principal)
CPT/HCPCS: 85025; 36415; 83690; 80053; 74177; 99285; Q9967; J7030